=== PATIENT | female | born 1950 | race Caucasian/White ===

== ENCOUNTER → 2016-06-03 | Day surgery (SDC) | payer MEDICARE ==
[~2016-06-03] MED LIST: Acetaminophen, Intravenous 1,000 MG/100 ML IVBOT IV ONE; BUPIVACAINE 0.25%-EPINEPHRINE 1:200,000 30 ML ONE; CEFAZOLIN 1 GM VIAL ONE; DEXAMETHASONE 4 MG/ML VIAL IV ONE; FENTANYL 100 MCG/2 ML VIAL IV ONE; FENTANYL 100 MCG/2 ML VIAL IV PRN; GLYCOPYRROLATE 1 MG VIAL IM ONE; ISOVUE-300 (61%) 50 ML ONE; LABETALOL 20 MG/4 ML SYRINGE IV PRN; LIDOCAINE 100 MG PFS IV ONE; MEPERIDINE 25 MG/ML TUBEX IV PRN; METOCLOPRAMIDE 10 MG/2 ML VIAL IV ONE; MIDAZOLAM 2 MG/2 ML VIAL IV ONE; NEOSTIGMINE 1 MG/1 ML (1:1000) INJ 10 ML MDV IM ONE; ONDANSETRON HCL 4 MG ODT TAB PO PRN; ONDANSETRON HCL 4 MG/2 ML VIAL IV PRN; OXYCODONE HCL 5 MG TABLET ONE; PROMETHAZINE 25 MG/ML VIAL ONE; PROPOFOL 200 MG/20 ML VIAL IV ONE; ROCURONIUM 50 MG/5 ML VIAL IV ONE; hydrALAZINE 20 MG/ML VIAL IV PRN
--- NOTE | 2016-06-03 10:35 | HIM.ANES ---
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), Hx Afib/Aflutter, Hx Cardiac Disorders HEENT: Yes: Hx Vision Problem (GLASSES OR CONTACTS) No: Other HEENT Problems Gastrointestinal: Yes: Hx Gastroesophageal Reflux Disease, Hx Gastrointestinal Disorders Neurological/Musculoskeletal: Yes: Hx Syncope (R/T HEART), Hx Migraine, Hx Neurological Disorders Psychological: No Hx Mental/Emotional Disorders Blood/Autoimmune: No: Hx AIDS, Hx Hepatitis (type) Smoking Status: Never smoker Pacemaker make/model/last interrogation: [employer] Vision [id number] Surgical History: Yes: Knee (BILATERAL KNEE REPLACEMENTS) Other Surgical History: BILATERAL BREAST IMPLANTS - Focused Physical Exam NPO since: 06/03/16 2200 Mallampati: Class II Thyromental Distance: Greater than 3 Neck: Full Range of Motion Dental: Normal - no significant findings Cardiovascular/Chest: Normal (RRR no mumurs or rubs.) Respiratory: Lungs clear. negative: Rhonchi, Wheezing Any problems with anesthesia, including nausea and vomiting?: Yes (N/V) Any relatives with a history of Malignant Hyperthermia?: No Does patient have a history of Malignant Hyperthermia?: No Beta Oh given (if appropriate): Yes Does the patient have a history of Motion Sickness-: No Other: Allergies Allergy/AdvReac Type Severity Reaction Status Date / Time codeine Allergy Nausea/Vomi Verified 06/03/16 09:22 ting Home Medications Medication Instructions Recorded Last Taken Type Cetirizine HCl [Zyrtec] 10 mg PO DAILY 06/03/16 06/02/16 07:00 History Esomeprazole Mag Trihydrate 40 mg PO DAILY 06/03/16 06/02/16 07:00 History [Nexium] Lisinopril 1 tab PO DAILY 06/03/16 06/03/16 07:00 History Propranolol HCl 1 tab PO BID 06/03/16 06/03/16 07:00 History Spironolactone 12.5 mg PO DAILY 06/03/16 06/03/16 07:00 History Height and Weight Patient's height 5 ft 7 in Patient's weight 98.883 kg Vital Signs Temperature 98.8 F 06/03/16 09:09 Pulse Rate 65 06/03/16 09:09 Respiratory Rate 18 06/03/16 09:09 Blood Pressure 130/57 L 06/03/16 09:09 Pulse Oxygen Saturation 95 06/03/16 09:09 METS - Level of Activity: Climbing stairs(1 flight),walking level ground, running short distance - Anesthetic Plan Anesthesia Type: General ASA Class: 4 -: I have examined this patient and reviewed the medical record. The patient has been assessed prior to anesthesia. Risks and benefits of anesthesia and anesthetic technique options have been discussed and all questions answered. The patient accepts the risk and desires me to proceed with the planned anesthetic.
--- NOTE | 2016-06-03 12:29 | DIRPT ---
CLINICAL DATA: Cholelithiasis/cholecystitis. Laparoscopic cholecystectomy. EXAM: INTRAOPERATIVE CHOLANGIOGRAM FLUOROSCOPY TIME: 23 seconds (8.2 mGy) COMPARISON: CT abdomen pelvis - 09/09/2008 FINDINGS: Intraoperative cholangiographic images of the right upper abdominal quadrant during laparoscopic cholecystectomy are provided for review. Contrast injection demonstrates selective cannulation of the central aspect of the cystic duct. There is passage of contrast through the central aspect of the cystic duct with filling of a non dilated common bile duct. There is passage of contrast though the CBD and into the descending portion of the duodenum. There is minimal reflux of injected contrast into the common hepatic duct and central aspect of the non dilated intrahepatic biliary system. There is minimal opacification of the central aspect of the pancreatic duct which appears nondilated. There are no discrete filling defects within the opacified portions of the biliary system to suggest the presence of choledocholithiasis. IMPRESSION: No evidence of choledocholithiasis. Electronically Signed By: Edwin Block M.D. On: 06/03/2016 12:27
[2016-06-03 12:42] VITALS: TEMP 97.2
--- NOTE | 2016-06-03 13:53 | SC.ANESPOS ---
Post-Anesthesia Note LOC: Fully Awake Post-Anesthesia Assessment: Awake, Returned to Baseline, Hemodynamically Stable , Pain Control Adequate Phase I & II Recovery Complete: Yes Apparent Anesthesia Complication: No : N PACU Discharge Time: 12:56 - Vital Signs Blood Pressure: 121/58 Pulse: 69 Resp Rate: 18 O2 Sat: 94 Temp: 97.2 F - Comments Anesthesia Discharge Time Report Time 12:56
--- NOTE | 2016-06-03 14:30 | HIMOPRPT ---
DATE OF PROCEDURE: 06/03/16 PREOPERATIVE DIAGNOSIS: Cholecystitis and cholelithiasis. POSTOPERATIVE DIAGNOSIS: Cholecystitis and cholelithiasis. PROCEDURE: Laparoscopic cholecystectomy with intraoperative cholangiogram. SURGEON: Ck Ospina MD FOOT GATHERER: Daniel Malave MD ANESTHESIA: General Anesthesia. ESTIMATED BLOOD LOSS: Minimal COMPLICATIONS: None noted. ANTIBIOTICS: Preoperative antibiotics given. INDICATIONS: ROHINI OJEDA is a 65 year-old F patient with symptomatic cholelithiasis. We had explained the risks and benefits including the risk of infection, bleeding, anesthesia, as well as bowel, bile duct injury and the unforeseen complications. The patient had understood, had agreed, and was brought for the above-mentioned procedure. PROCEDURE IN DETAIL: The patient was brought to the operating room and placed on the operating room table in supine position. After identification of the patient's site, was given adequate amount of general anesthesia, then prepped and draped in sterile manner. When given okay by Anesthesia, after appropriate time-out, an Optiview trocar was placed on umbilicus in usual manner without any difficulties. Abdomen was insufflated to 15 mmHg pressure with CO2 gas, and the head was placed up and the right side placed up. Two subcostal and one subxiphoid trocars were inserted under direct vision in usual manner without any problems. Gallbladder was grasped, pulled lateral and cephalad. We dissected the gallbladder with blunt dissection, dissecting out the cystic duct and cystic artery. A Aldrich clamp was placed. Cholangiogram was obtained. This was felt to be normal. Cholangiocatheter was removed. Cystic duct was multiply clipped and divided. Cystic artery was multiply clipped and divided. Then, gallbladder was placed under tension, dissected free with hook cautery dissection. It was placed in an Endopouch and removed without any difficulty. The abdomen was then re-insufflated and was irrigated with copious amounts of saline and suctioned dry. Hemostasis assured. Liver bed was inspected, was hemostatic. Clips were in good position. At that point, we went ahead and deflated the abdomen, assured hemostasis with at the trocar sites and brought the epigastric trocar site together with a #1 Vicryl sutures. All wounds were irrigated and brought together with monocryl. Dermabond was applied and allowed to dry. The patient was awoken and taken to recovery room in excellent condition with correct sponge counts and needle counts.
[2016-06-03 15:23] VITALS: BP 140/61; PULSE 62
== END ==
LOC: SDC 08:14
PROVIDERS: ATTEND Surgery
PROC: 0FT44ZZ Resection of Gallbladder, Percutaneous Endoscopic Approach (ICD-10-PCS; principal; 2016-06-03 10:00)
DX: K80.10 Calculus of gallbladder with chronic cholecystitis without obstruction (principal); I10 Essential (primary) hypertension; I48.91 Unspecified atrial fibrillation; K21.9 Gastro-esophageal reflux disease without esophagitis; G43.909 Migraine, unspecified, not intractable, without status migrainosus; M19.90 Unspecified osteoarthritis, unspecified site; Z95.0 Presence of cardiac pacemaker; Z79.899 Other long term (current) drug therapy
CPT/HCPCS: 47563; 74300; A9270; J0131; J0690; J1100; J2001; J2550; J2710; J2765; J3010; J3490; J2250